=== PATIENT | male | born 1960 | race African-American/Black ===

== ENCOUNTER 2021-03-13 16:20 | Inpatient (IN) | payer MEDICAID, OTHER ==
[~2021-03-13] VITALS: Ht 170.2 cm; Wt 81.6 kg
[2021-03-13] MEDS ORDERED: SODIUM CHLORIDE 0.9% 1,000 ML IV ONE ×2 (18:30→23:45)
[2021-03-13 18:56] LABS: HEMATOCRIT. 42.4 % (42.0-52.0); HEMOGLOBIN. 14.1 g/dL (14.0-18.0); MEAN CORPUSCULAR HEMOGLOBIN 31.2 pg (28.0-32.0); MEAN CORPUSCULAR VOLUME 93.7 fL (80.0-94.0); MEAN PLATELET VOLUME 8.2 fl (7.4-10.4); PLATELET 220 x1000/uL (130-400); RED BLOOD CELL COUNT 4.52 mill/uL (4.7-6.1); RED CELL DISTRIBUTION WIDTH 13.3 % (11.6-14.6)
[2021-03-13 19:00] LABS: CHLORIDE 112 mEq/L (98-107)
[2021-03-13 19:04] LABS: ETHANOL BLOOD < 10 mg/dL
[2021-03-13 19:51] LABS: PLATELET ESTIMATE NORMAL
[2021-03-13] MEDS ORDERED: IOHEXOL-350 100 ML BOTTLE ONE (21:00)
[2021-03-14 02:32] LABS: CLARITY URINE CLEAR (CLEAR); COLOR URINE YELLOW (YELLOW); KETONES URINE 1+ (NEGATIVE); LEUKOCYTE ESTERASE URINE NEGATIVE (NEGATIVE); NITRITE URINE NEGATIVE (NEGATIVE); OCCULT BLOOD URINE 1+ (NEGATIVE); PH URINE 5.5 (4.5-8.0); PROTEIN URINE TRACE (NEGATIVE)
[2021-03-14 02:59] LABS: *AMPHETAMINES SCREEN URINE NEGATIVE (NEGATIVE); *BARBITURATES SCREEN URINE NEGATIVE (NEGATIVE); *BENZODIAZEPINES SCREEN URINE NEGATIVE (NEGATIVE); *COCAINE SCREEN URINE NEGATIVE (NEGATIVE); METHADONE URINE SCREEN NEGATIVE (NEGATIVE); OPIATES URINE SCREEN NEGATIVE (NEGATIVE); PHENCYCLIDINE URINE SCREEN NEGATIVE (NEGATIVE)
[2021-03-14 03:00] LABS: CANNABINOID URINE SCREEN NEGATIVE (NEGATIVE)
[2021-03-14] MEDS ORDERED: CLONIDINE 0.1MG TABLET PO PRN (07:00)
[2021-03-14] MEDS ORDERED: ACETAMINOPHEN 325MG TABLET PO PRN (07:00)
[2021-03-14] MEDS ORDERED: MAGNESIUM/ALUMINUM HYDROXIDE/SIMETHICONE 30ML UDC PO PRN (07:00)
[2021-03-14] MEDS: SODIUM CHLORIDE 0.45% 1,000 ML IV SCH ×2 (07:00→20:20)
[2021-03-14] MEDS ORDERED: ENOXAPARIN 40MG/0.4ML SYR SUBCUT SCH (07:00)
[2021-03-14] MEDS ORDERED: HYDROCODONE/APAP 7.5/325MG 1 TAB TABLET PO PRN (07:00)
[2021-03-14] MEDS ORDERED: DOCUSATE SODIUM 100MG CAPSULE PO PRN (07:00)
[2021-03-14] MEDS ORDERED: ONDANSETRON HCL 4MG/2ML INJ IV PRN (07:00)
[2021-03-14] MEDS ORDERED: NALOXONE HCL 0.4MG/ML VIAL IV PRN (07:15)
[2021-03-14] MEDS ORDERED: ENOXAPARIN 30MG/0.3ML SYR SUBCUT SCH (09:00)
[2021-03-14 12:00] VITALS: BP 125/74
[2021-03-14 12:01] VITALS: BP 120/72
[2021-03-14] MEDS: ENOXAPARIN 40MG/0.4ML SYR SUBCUT SCH (14:00)
[2021-03-14 16:00] VITALS: BP_SYST 128; BP_SYST 130; BP_DIAS 72; BP_DIAS 73
[2021-03-14 20:00] VITALS: BP 128/76
[2021-03-15] VITALS: BP 108/69
[2021-03-15 04:00] VITALS: BP 130/80
[2021-03-15 07:04] LABS: BASOPHILS % 0.5 % (0.0-2.0); EOSINOPHILS % 2.3 % (0.0-5.0); HEMATOCRIT. 38.4 % (42.0-52.0); HEMOGLOBIN. 13.2 g/dL (14.0-18.0); LYMPHOCYTES % 22.5 % (20.0-50.0); MEAN CORPUSCULAR HEMOGLOBIN 31.9 pg (28.0-32.0); MEAN CORPUSCULAR VOLUME 92.9 fL (80.0-94.0); MEAN PLATELET VOLUME 8.3 fl (7.4-10.4); MONOCYTES % 9.8 % (2.0-8.0); NEUTROPHILS % 64.9 % (40.0-76.0); PLATELET 195 x1000/uL (130-400); RED BLOOD CELL COUNT 4.13 mill/uL (4.7-6.1); RED CELL DISTRIBUTION WIDTH 13.4 % (11.6-14.6)
[2021-03-15 07:09] LABS: CHLORIDE 113 mEq/L (98-107)
[2021-03-15 07:17] LABS: LDL CHOLESTEROL 58 mg/dL (5-100)
[2021-03-15 07:23] LABS: HDL CHOLESTEROL 58 mg/dL (40-59)
[2021-03-15 08:00] VITALS: BP 109/69
[2021-03-15 12:00] VITALS: BP 115/71
[2021-03-15] MEDS: ENOXAPARIN 40MG/0.4ML SYR SUBCUT SCH (14:00)
[2021-03-15 14:42] VITALS: BP 115/71
== END 2021-03-15 16:55 | disposition home or self-care (01) | DRG 86 ==
LOC: ER 16:20 → 6WST 03-14 04:51 → ENRESERV 03-14 07:32
PROVIDERS: ADMIT Hospitalist; ATTEND Hospitalist
DX: S02.85XA Fracture of orbit, unspecified, initial encounter for closed fracture (principal); E87.2 Acidosis; R29.6 Repeated falls; E86.0 Dehydration; R74.01 Elevation of levels of liver transaminase levels; W01.0XXA Fall on same level from slipping, tripping and stumbling without subsequent striking against object, initial encounter; Y93.89 Activity, other specified; Y92.89 Other specified places as the place of occurrence of the external cause; Y99.8 Other external cause status; Z20.822 Contact with and (suspected) exposure to COVID-19
CPT/HCPCS: 36415; 70486; 71045; 71275; 80053; 80061; 80305; 80320; 81003; 82962; 83605; 83880; 84484; 85025; 85379; 87426; 93970; 97162; 99285; J1650; J7030; Q9967; G0480

== ENCOUNTER 2021-03-18 04:57 | Emergency (ER) | payer OTHER ==
[~2021-03-18] VITALS: Ht 172.7 cm; Wt 69.0 kg
[2021-03-18 06:35] LABS: BASOPHILS % 0.1 % (0.0-2.0); EOSINOPHILS % 0.1 % (0.0-5.0); HEMATOCRIT. 41.5 % (42.0-52.0); HEMOGLOBIN. 13.7 g/dL (14.0-18.0); LYMPHOCYTES % 11.6 % (20.0-50.0); MEAN CORPUSCULAR HEMOGLOBIN 30.8 pg (28.0-32.0); MEAN CORPUSCULAR VOLUME 93.2 fL (80.0-94.0); MONOCYTES % 8.4 % (2.0-8.0); NEUTROPHILS % 79.8 % (40.0-76.0); PLATELET 213 x1000/uL (130-400); RED BLOOD CELL COUNT 4.46 mill/uL (4.7-6.1); RED CELL DISTRIBUTION WIDTH 13.3 % (11.6-14.6)
[2021-03-18 06:38] LABS: CHLORIDE 104 mEq/L (98-107)
[2021-03-18 06:43] LABS: ETHANOL BLOOD < 10 mg/dL
[2021-03-18 08:27] LABS: CLARITY URINE CLEAR (CLEAR); COLOR URINE YELLOW (YELLOW); KETONES URINE 4+ (NEGATIVE); LEUKOCYTE ESTERASE URINE NEGATIVE (NEGATIVE); NITRITE URINE NEGATIVE (NEGATIVE); OCCULT BLOOD URINE 2+ (NEGATIVE); PROTEIN URINE 1+ (NEGATIVE); SPECIFIC GRAVITY URINE 1.031 (1.005-1.030)
[2021-03-18 09:00] LABS: *BENZODIAZEPINES SCREEN URINE NEGATIVE (NEGATIVE); *COCAINE SCREEN URINE NEGATIVE (NEGATIVE); METHADONE URINE SCREEN NEGATIVE (NEGATIVE); OPIATES URINE SCREEN NEGATIVE (NEGATIVE)
[2021-03-18 09:01] LABS: *AMPHETAMINES SCREEN URINE NEGATIVE (NEGATIVE); *BARBITURATES SCREEN URINE NEGATIVE (NEGATIVE); CANNABINOID URINE SCREEN NEGATIVE (NEGATIVE); PHENCYCLIDINE URINE SCREEN NEGATIVE (NEGATIVE)
[2021-03-18 12:14] VITALS: BP 121/66
== END 2021-03-18 12:39 | disposition short-term general hospital (02) ==
LOC: ER 05:34
DX: R53.1 Weakness (principal); G93.41 Metabolic encephalopathy; R74.01 Elevation of levels of liver transaminase levels; Z20.822 Contact with and (suspected) exposure to COVID-19
CPT/HCPCS: 36415; 70450; 71045; 80053; 80305; 80307; 80320; 80329; 81003; 82140; 85025; 87426; 99285; Z7610; G0480